=== PATIENT | female | born 1935 | race African-American/Black ===

== ENCOUNTER → 2017-06-04 | Outpatient (CLI) | payer MEDICARE, BC ==
[~2017-06-04] MED LIST: ALCO1MED TP; ATOR10TA PO; ESOM40CA PO; INSU3INS8 SQ; LATA2.5D6 OP; LEVPEN SQ; METF500T4 PO; THIA50TA2 PO; VERA240C2 PO; VITA100T3 PO; [UNRECOGNIZED DRUG - CODE] MC; [UNRECOGNIZED DRUG - CODE] MC
== END | disposition home or self-care (01) ==
LOC: MAMMO 09:11
PROVIDERS: ATTEND Obstetrics & Gynecology Obstetrics
DX: Z12.31 Encounter for screening mammogram for malignant neoplasm of breast (principal); R10.2 Pelvic and perineal pain; Z78.0 Asymptomatic menopausal state
CPT/HCPCS: 76830; 76856; 77067

== ENCOUNTER 2017-07-01 05:52 | Day surgery (SDC) | payer MEDICARE, BC ==
[~2017-07-01] VITALS: Ht 165.1 cm; Wt 113.4 kg
[2017-07-01 06:33] LABS: BASOPHILS % 0.5 % (0.0-2.0); EOSINOPHILS % 1.8 % (0.0-5.0); HEMATOCRIT. 38.6 % (36.0-48.0); LYMPHOCYTES % 31.1 % (20.0-50.0); MEAN CORPUSCULAR HEMOGLOBIN 30.9 pg (28.0-32.0); MEAN CORPUSCULAR VOLUME 91.8 fL (81.0-99.0); MEAN PLATELET VOLUME 8.7 fl (7.4-10.4); MONOCYTES % 8.6 % (2.0-8.0); PLATELET 264 x1000/uL (130-400); RED BLOOD CELL COUNT 4.21 mill/uL (4.2-5.4); RED CELL DISTRIBUTION WIDTH 13.6 % (11.6-14.6)
[2017-07-01 06:43] LABS: CHLORIDE 101 mEq/L (98-107)
[2017-07-01] MEDS ORDERED: SODIUM CHLORIDE 0.9% 1,000 ML IV SCH (06:50)
[2017-07-01 07:25] LABS: CLARITY URINE CLEAR (CLEAR); COLOR URINE YELLOW (YELLOW); KETONES URINE NEGATIVE (NEGATIVE); LEUKOCYTE ESTERASE URINE NEGATIVE (NEGATIVE); NITRITE URINE NEGATIVE (NEGATIVE); OCCULT BLOOD URINE NEGATIVE (NEGATIVE); PROTEIN URINE NEGATIVE (NEGATIVE); SPECIFIC GRAVITY URINE 1.013 (1.005-1.030); UROBILINOGEN URINE 0.2 E.U./dL (0.2-1.0)
[2017-07-01] MEDS ORDERED: ALBUTEROL 90MCG/PUFF 17GM INHALER INH ONE (07:54)
[2017-07-01] MEDS ORDERED: FENTANYL CITRATE/PF 50MCG/ML 2ML VIAL IV PRN (10:00)
[2017-07-01] MEDS ORDERED: ONDANSETRON HCL 4MG/2ML VIAL IV PRN (10:00)
[2017-07-01] MEDS ORDERED: MULT-1203 PO (10:10)
[2017-07-01] MEDS ORDERED: ESOM40CA PO (10:10)
[2017-07-01] MEDS ORDERED: VITA400T7 PO (10:10)
[2017-07-01] MEDS ORDERED: NAPR220T66 PO (10:10)
[2017-07-01] MEDS ORDERED: LOSA1TAB34 PO (10:10)
[2017-07-01] MEDS ORDERED: ATOR10TA69 PO (10:10)
[2017-07-01] MEDS ORDERED: CYAN250014 PO (10:10)
[2017-07-01] MEDS ORDERED: CALC-769 PO (10:10)
[2017-07-01] MEDS ORDERED: SITA1TAB6 PO (10:10)
== END 2017-07-01 11:30 | disposition home or self-care (01) ==
LOC: OR 05:52
PROVIDERS: ATTEND Obstetrics & Gynecology Obstetrics
DX: N84.0 Polyp of corpus uteri (principal); K21.9 Gastro-esophageal reflux disease without esophagitis; I10 Essential (primary) hypertension; E11.9 Type 2 diabetes mellitus without complications; Z80.3 Family history of malignant neoplasm of breast; E66.01 Morbid (severe) obesity due to excess calories; Z68.41 Body mass index [BMI] 40.0-44.9, adult
CPT/HCPCS: 36415; 58558; 80048; 81003; 82962; 85025; 88305; 93005; J0171; J0330; J0690; J1885; J2250; J2405; J3010; J3490; J7030; J2704

== ENCOUNTER → 2018-06-11 | Outpatient (CLI) | payer BC ==
[~2018-06-11] MED LIST changes: +ATOR10TA69 PO; +CALC-769 PO; +CYAN250014 PO; +LATA2.5D4 OP; -LATA2.5D6 OP; +LOSA1TAB34 PO; +METF-414 PO; -METF500T4 PO; +MULT-1203 PO; +NAPR220T66 PO; +SITA1TAB6 PO; +VITA400T7 PO
== END | disposition home or self-care (01) ==
LOC: US 09:31
PROVIDERS: ATTEND Obstetrics & Gynecology Obstetrics
DX: N84.0 Polyp of corpus uteri (principal)
CPT/HCPCS: 76830; 76856

== ENCOUNTER 2022-01-29 14:23 | Emergency (ER) | payer BC ==
[~2022-01-29] VITALS: Ht 172.7 cm; Wt 78.0 kg
[2022-01-29] MEDS ORDERED: HYDROCODONE/ACETAMINOPHEN 5/325MG TABLET PO STA (16:59)
[2022-01-29 17:38] LABS: CLARITY URINE CLEAR (CLEAR); COLOR URINE YELLOW (YELLOW); KETONES URINE NEGATIVE (NEGATIVE); LEUKOCYTE ESTERASE URINE TRACE (NEGATIVE); NITRITE URINE POSITIVE (NEGATIVE); OCCULT BLOOD URINE NEGATIVE (NEGATIVE); PH URINE 7.5 (4.5-8.0); PROTEIN URINE NEGATIVE (NEGATIVE); SPECIFIC GRAVITY URINE 1.008 (1.005-1.030); UROBILINOGEN URINE 0.2 E.U./dL (0.2-1.0)
[2022-01-29] MEDS ORDERED: KETOROLAC 60MG/2ML VIAL IM NR (18:45)
[2022-01-29] MEDS ORDERED: CYCLOBENZAPRINE 10MG TABLET PO SCH (18:45)
[2022-01-29] MEDS ORDERED: HYDROCODONE/ACETAMINOPHEN 5/325MG TABLET PO NR (18:45)
[2022-01-29] MEDS ORDERED: TRAM50TA3 MT (19:13)
[2022-01-29] MEDS ORDERED: TOPUD MT (19:13)
[2022-01-29] MEDS ORDERED: CEPHALEXIN 250MG CAPSULE PO NR (19:15)
[2022-01-29] MEDS ORDERED: CEPH750C7 MT (19:16)
[2022-01-29 19:40] VITALS: BP 180/101
== END 2022-01-29 20:01 | disposition home or self-care (01) ==
LOC: ER 14:23
DX: M54.50 Low back pain, unspecified (principal); I10 Essential (primary) hypertension; N39.0 Urinary tract infection, site not specified; I48.91 Unspecified atrial fibrillation; E11.9 Type 2 diabetes mellitus without complications; Z79.4 Long term (current) use of insulin
CPT/HCPCS: 72100; 73502; 81003; 93971; 96372; 99285; J1885